=== PATIENT | male | born 1980 | race Caucasian/White ===

== ENCOUNTER 2021-03-05 21:03 | Emergency (ER) | payer OTHER ==
[~2021-03-05] VITALS: Ht 182.9 cm; Wt 102.9 kg
[2021-03-05 21:53] VITALS: BP_SYST 141
--- NOTE | 2021-03-05 22:16 | PHYS DOC ---
Past History Past Medical History: No Pertinent History Past Surgical History: Tonsillectomy Alcohol Use: Occasionally Adult General Chief Complaint Chief Complaint: DIFFICULTY SWALLOWING HPI HPI Patient is a 40-year-old male who presents with a chief complaint of concern for food stuck in his throat. States that about 7 or 8 hours before coming to the emergency department he was eating at [employer], swallowed a big piece of food and it feels like it got stuck in his lower throat. Denies any chest pain, shortness of breath, abdominal pain, nausea, vomiting. Denies any trouble or pain with swallowing. States he is able to eat and drink without issue. Denies any drooling. States it does feel better than it did earlier but still feels funny just like when he swallowed. Denies any recent travel, illnesses, fevers, history of VTE's or cardiac history. Review of Systems Review of Systems Review of systems otherwise unremarkable except noted in HPI Allergies Allergies Allergies Coded Allergies Type Severity Reaction Last Updated Verified No Known Drug Allergies 03/05/21 No Physical Exam Physical Exam Constitutional: Well developed, well nourished, no acute distress, non-toxic appearance. [] HENT: Normocephalic, atraumatic, bilateral external ears normal, oropharynx moist, no oral exudates, nose normal. [] Neck: Normal range of motion, no tenderness, supple, no stridor. [] Cardiovascular:Heart rate regular rhythm, no murmur [] Lungs & Thorax: Bilateral breath sounds clear to auscultation [] Abdomen: soft, no tenderness, no masses, no pulsatile masses. [] Neurologic: Alert and oriented X 3, normal motor function, normal sensory function, no focal deficits noted. [] Current Patient Data Vital Signs Vital Signs Date Time Temp Pulse Resp B/P (MAP) Pulse Ox O2 Delivery O2 Flow Rate FiO2 03/05/21 21:53 98.0 69 16 141/ 97 Room Air EKG EKG [] Radiology/Procedures Radiology/Procedures [] Heart Score C/O Chest Pain: No Risk Factors: Risk Factors: DM, Current or recent (<one month) smoker, HTN, HLP, family history of CAD, obesity. Risk Scores: Risk Factors: DM, Current or recent (<one month) smoker, HTN, HLP, family history of CAD, obesity. Course & Med Decision Making Course & Med Decision Making Patient is a 40-year-old male who presents with a chief complaint of possible food bolus Vital signs not concerning. Physical exam noted above. Patient able to drink Dr. Pepper without issue. Patient otherwise asymptomatic. Discussed all findings with patient and recommended only sipping fluids over the night into the morning. Gave strict return precautions to the ED and advised to follow-up with primary care as needed. Patient grateful, verbalized understanding and agreed with plan of discharge. [] Dragon Disclaimer Dragon Disclaimer This electronic medical record was generated, in whole or in part, using a voice recognition dictation system. Departure Departure: Impression: Primary Impression: Esophageal obstruction due to food impaction Disposition: 01 DC HOME SELF CARE/HOMELESS Condition: GOOD Referrals: NON,STAFF (PCP) LINDA MASCORRO MD Additional Instructions: As discussed, 4-year esophageal food bolus, please continue to sip small amounts of water over the course of the evening. Please do not eat any food just in case there is still some of the food stuck in your esophagus. You appear to be tolerating your secretions very well, had normal vital signs are and in no distress. As discussed, please set up straight, with a pillow behind your back and massage the area while sipping fluids. You can add a tiny amount of olive oil as well as discussed. Please come immediately back to the emergency department for any of the concerning features discussed here in the ED. LINDA LUNA MD Mar 05, 2021 22:16
[2021-03-05] MEDS ORDERED: MORPHINE SULFATE 4 MG/ML DISP.SYRIN. IM ONE (23:30)
== END 2021-03-05 22:56 | disposition home or self-care (01) ==
LOC: ER 21:03
DX: K22.2 Esophageal obstruction (principal); K56.49 Other impaction of intestine
CPT/HCPCS: 96372; 99283; J2270